=== PATIENT | female | born 1985 | race Caucasian/White ===

== ENCOUNTER 2016-04-14 09:59 | Emergency (ER) | payer OTHER ==
[2016-04-14] MEDS ORDERED: PROMETHAZINE 25 MG/1 ML VIAL ONE (10:52)
[2016-04-14] MEDS ORDERED: HYDROmorphone 1 MG/ML SYRINGE ONE (10:53)
[2016-04-14] MEDS ORDERED: MAG HYDROX/AL HYDROX/SIMETH 30 ML UDC PO STA (11:03)
[2016-04-14] MEDS ORDERED: PHENobarb/HYOSCY/ATROPINE/SCOP 5 ML SYRINGE PO STA (11:03)
[2016-04-14] MEDS ORDERED: LIDOCAINE VISCOUS 2% 15 ML UDC MM STA (11:04)
[2016-04-14] MEDS ORDERED: MAG HYDROX/AL HYDROX/SIMETH 30 ML UDC ONE (11:08)
[2016-04-14] MEDS ORDERED: LIDOCAINE VISCOUS 2% 15 ML UDC MM ONE (11:08)
[2016-04-14] MEDS ORDERED: PHENobarb/HYOSCY/ATROPINE/SCOP 5 ML SYRINGE PO ONE (11:08)
== END 2016-04-14 14:10 | disposition home or self-care (01) ==
DX: R07.9 Chest pain, unspecified (principal); K21.9 Gastro-esophageal reflux disease without esophagitis; M25.512 Pain in left shoulder
CPT/HCPCS: 36415; 71020; 85379; 93005; 93010; 99283; 99284; A9270; J1170